=== PATIENT | female | born 1960 | race Caucasian/White ===

== ENCOUNTER → 2018-04-19 | Outpatient (CLI) | payer OTHER ==
[~2018-04-19] MED LIST: BACTRIM 400-801 EACH PO
== END | disposition home or self-care (01) ==
LOC: RAD 08:27
DX: M17.0 Bilateral primary osteoarthritis of knee (principal)

== ENCOUNTER 2018-08-28 10:49 | Emergency (ER) | payer OTHER ==
[2018-08-28 10:51] VITALS: BP 164/76
[2018-08-28] MEDS ORDERED: AMOXICILLIN500 M2 PO (11:17)
[2018-10-09] MEDS ORDERED: VITAMIN B121000 MC1 PO (01:00)
[2018-10-09] MEDS ORDERED: MULTIVITAMINS1 EAC6 PO (01:00)
[2018-10-09] MEDS ORDERED: NAPROSYN500 MG PO (01:02)
[2018-10-09] MEDS ORDERED: TRAMADOL HCL50 MG PO (01:02)
== END 2018-08-28 11:22 | disposition home or self-care (01) ==
LOC: ED 10:49
DX: H65.92 Unspecified nonsuppurative otitis media, left ear (principal); Z91.030 Bee allergy status; Z91.041 Radiographic dye allergy status; Z91.048 Other nonmedicinal substance allergy status; Z79.2 Long term (current) use of antibiotics; Z90.710 Acquired absence of both cervix and uterus; Z90.49 Acquired absence of other specified parts of digestive tract

== ENCOUNTER → 2019-02-14 | Outpatient (CLI) | payer OTHER ==
[~2019-02-14] MED LIST changes: +AMOXICILLIN500 M2 PO; +MULTIVITAMINS1 EAC6 PO; +NAPROSYN500 MG PO; +TRAMADOL HCL50 MG PO; +VITAMIN B121000 MC1 PO
== END | disposition home or self-care (01) ==
LOC: CT 12:23
DX: K43.2 Incisional hernia without obstruction or gangrene (principal); Z90.49 Acquired absence of other specified parts of digestive tract

== ENCOUNTER 2019-02-24 12:51 | Emergency (ER) | payer OTHER ==
[~2019-02-24] VITALS: Ht 172.7 cm; Wt 99.8 kg
[2019-02-24 12:54] VITALS: BP 141/42
== END 2019-02-24 13:45 | disposition left against medical advice (07) ==
LOC: ED 12:51
DX: L53.9 Erythematous condition, unspecified (principal); E78.5 Hyperlipidemia, unspecified; E66.9 Obesity, unspecified; M19.90 Unspecified osteoarthritis, unspecified site; Z53.21 Procedure and treatment not carried out due to patient leaving prior to being seen by health care provider; Z91.030 Bee allergy status; Z91.041 Radiographic dye allergy status; Z79.899 Other long term (current) drug therapy; Z86.718 Personal history of other venous thrombosis and embolism

== ENCOUNTER 2019-07-17 18:09 | Emergency (ER) | payer OTHER ==
[~2019-07-17] VITALS: Ht 167.6 cm; Wt 121.6 kg
[2019-07-17 18:16] VITALS: BP 144/59
[2019-07-17 19:05] LABS: BILIRUBIN NEGATIVE (NEGATIVE); BLOOD NEGATIVE (NEGATIVE); CLARITY CLEAR (CLEAR); COLOR YELLOW (YELLOW); GLUCOSE NEGATIVE (NEGATIVE); KETONE NEGATIVE (NEGATIVE); LEUKO ESTERASE TRACE (NEGATIVE); NITRITE NEGATIVE (NEGATIVE); SPECIFIC GRAVITY >= 1.030 (1.005-1.030); UROBILINOGEN 0.2 E.U./dl (0.2-1.0)
[2019-07-17 19:10] LABS: BACTERIA TRACE
[2019-07-17] MEDS ORDERED: IBU800 MG PO (19:44)
[2019-07-17] MEDS ORDERED: AUGMENTIN 875-875 MG PO (19:44)
== END 2019-07-17 20:50 | disposition home or self-care (01) ==
LOC: ED 18:09
PROVIDERS: Nurse Practitioner Family
DX: J01.90 Acute sinusitis, unspecified (principal); M54.5 Low back pain; I10 Essential (primary) hypertension; M19.90 Unspecified osteoarthritis, unspecified site; Z86.73 Personal history of transient ischemic attack (TIA), and cerebral infarction without residual deficits; Z88.8 Allergy status to other drugs, medicaments and biological substances; Z91.041 Radiographic dye allergy status; Z79.899 Other long term (current) drug therapy